=== PATIENT | male | born 1945 | race Caucasian/White ===

== ENCOUNTER 2020-09-15 08:51 | Day surgery (SDC) | payer OTHER ==
[2020-09-14 12:45] VITALS: BMI 27.6
[2020-09-15] MEDS ORDERED: PROPOFOL 20 ML ONE ×3 (09:18)
[2020-09-15] MEDS ORDERED: LIDOCAINE HCL/PF 2% SDV 5ML VIAL ONE (09:18)
[2020-09-15 10:50] VITALS: PULSE 68
[2020-09-15 10:54] VITALS: BP 110/68; TEMP 98
== END 2020-09-15 11:15 | disposition home or self-care (01) ==
LOC: FASU-ENDO 08:51
PROVIDERS: ATTEND Internal Medicine Gastroenterology
PROC: 0DBM8ZX Excision of Descending Colon, Via Natural or Artificial Opening Endoscopic, Diagnostic (ICD-10-PCS; principal; 2020-09-15 09:52)
DX: Z12.11 Encounter for screening for malignant neoplasm of colon (principal); D12.4 Benign neoplasm of descending colon; K64.1 Second degree hemorrhoids; K64.8 Other hemorrhoids; K57.30 Diverticulosis of large intestine without perforation or abscess without bleeding
CPT/HCPCS: 82962; 88305-TC